=== PATIENT | male | born 1955 | race Caucasian/White ===

== ENCOUNTER → 2024-01-18 10:13 | Outpatient (REF) | payer MEDICARE, SELFPAY ==
[2024-01-18 11:44] LABS: % Immature Granulocytes 0.3 % (0-0.5); % Lymphocytes 18.4 % (20.5-51.1); % Monocytes 7.5 % (1.7-9.3); % Neutrophils 72.8 % (42.2-75.2); Absolute Lymphocytes 0.7 10^3/uL (1.2-3.4); Absolute Monocytes 0.3 10^3/uL (0.1-0.6); Absolute Neutrophils 2.8 10^3/uL (1.4-6.5); Hemoglobin 15.2 g/dL (13.0-18.0); Mean Corp Hgb Conc. 33.8 g/dL (33.0-37.0); Mean Corpuscular Hgb 31.1 pg (27.0-31.0); Mean Corpuscular Volume 92.2 fL (80.0-94.0); Mean Platelet Volume 10.6 fL (7.4-10.4); Nucleated Red Blood Cells % 0 % (-); Platelet Count 208 10^3/uL (130-400); Red Blood Cell Count 4.88 10^6/uL (4.70-6.10); White Blood Cell Count 3.9 10^3/uL (4.8-10.8)
[2024-01-18 12:13] LABS: Protein/creatinine Ratio 0.2; Urine Protein 9 mg/dl
[2024-01-18 12:17] LABS: ALT (SGPT) 43 U/L (0-50); AST (SGOT) 31 U/L (17-59); Albumin 4.6 g/dl (3.5-5.0); Alkaline Phosphatase 58 U/L (38-126); Blood Urea Nitrogen 25 mg/dl (9-20); Calcium 9.5 mg/dl (8.4-10.2); Carbon Dioxide 26 mmol/L (22-30); Chloride 102 mmol/L (98-107); Glucose 125 mg/dl (70-99); Potassium 4.9 mmol/L (3.5-5.1); Sodium 135 mmol/L (135-145); Total Bilirubin 0.8 mg/dl (0.2-1.3); Total Protein 7.4 g/dl (6.3-8.2); eGFR > 60.00
[2024-01-18 12:19] LABS: C-Reactive Protein < 5.00 mg/L (0.0-10.00)
[2024-01-19 21:46] LABS: ds-DNA Ab, IgG Reflex To Titer 82 IU (0-24)
[2024-01-20 13:55] LABS: Smith/RNP (ENA), IgG 4 Units (0-19)
[2024-01-20 14:38] LABS: Smith (ENA) Antibody, IgG 4 AU/mL (0-40)
== END ==
LOC: REG 10:13
PROVIDERS: ATTENDING PHYSICIAN Internal Medicine Rheumatology; FAMILY PHYSICIAN Internal Medicine
DX: M32.9 Systemic lupus erythematosus, unspecified (principal); Z51.81 Encounter for therapeutic drug level monitoring
CPT/HCPCS: 36415; 80053; 82570; 84156; 85025; 86140; 86225; 86235; 86256

== ENCOUNTER → 2024-07-25 10:13 | Outpatient (REF) | payer MEDICARE, SELFPAY ==
[2024-07-25 11:00] LABS: Urine Albumin Negative (Neg - Trace); Urine Bilirubin Negative (Negative); Urine Character Clear (Clear); Urine Color Yellow; Urine Glucose 3+ (Negative); Urine Ketone Negative (Negative); Urine Leukocyte Negative (Negative); Urine Nitrite Negative (Negative); Urine Occult Blood Negative (Negative); Urine Specific Gravity 1.015 (<1.030); Urine Urobilinogen Negative (Neg - 1+)
[2024-07-25 11:04] LABS: % Basophils 1.3 % (0-2); % Eosinophils 2.9 % (0-6); % Immature Granulocytes 0.6 % (0-0.5); % Lymphocytes 16.6 % (20.5-51.1); % Monocytes 10.7 % (1.7-9.3); % Neutrophils 67.9 % (42.2-75.2); Absolute Basophils 0.1 10^3/uL (0-0.2); Absolute Eosinophils 0.1 10^3/uL (0-0.7); Absolute Lymphocytes 0.8 10^3/uL (1.2-3.4); Absolute Monocytes 0.5 10^3/uL (0.1-0.6); Absolute Neutrophils 3.2 10^3/uL (1.4-6.5); Hematocrit 45.4 % (39.0-52.0); Hemoglobin 15.4 g/dL (13.0-18.0); Mean Corp Hgb Conc. 33.9 g/dL (33.0-37.0); Mean Corpuscular Hgb 31.3 pg (27.0-31.0); Mean Corpuscular Volume 92.3 fL (80.0-94.0); Mean Platelet Volume 9.9 fL (7.4-10.4); Nucleated Red Blood Cells % 0 % (-); Platelet Count 250 10^3/uL (130-400); Red Blood Cell Count 4.92 10^6/uL (4.70-6.10); Red Cell Dist. Width 12.1 % (11.5-14.5); White Blood Cell Count 4.8 10^3/uL (4.8-10.8)
[2024-07-25 11:37] LABS: Microalbumin, Random Urine < 0.6 mg/dl (0.6-1.7)
[2024-07-25 11:58] LABS: ALT (SGPT) 39 U/L (0-50); AST (SGOT) 31 U/L (17-59); Alkaline Phosphatase 55 U/L (38-126); Blood Urea Nitrogen 20 mg/dl (9-20); Calcium 9.6 mg/dl (8.4-10.2); Carbon Dioxide 25 mmol/L (22-30); Chloride 103 mmol/L (98-107); Glucose 158 mg/dl (70-99); HDL Cholesterol 50 mg/dl; LDL Cholesterol, Calculated 70 mg/dl; Potassium 5.1 mmol/L (3.5-5.1); Sodium 140 mmol/L (135-145); Total Bilirubin 0.7 mg/dl (0.2-1.3); Total Cholesterol 162 mg/dl (50-199); Total Protein 7.6 g/dl (6.3-8.2); Triglyceride 210 mg/dl (10-149); Very Low Density Lipoprotein 42 mg/dl (0-30); eGFR > 60.00
[2024-07-25 12:00] LABS: C-Reactive Protein < 5.00 mg/L (0.0-10.00)
[2024-07-25 12:03] LABS: Albumin 4.7 g/dl (3.5-5.0)
[2024-07-25 12:30] LABS: TSH 4.98 uIU/ml (0.47-4.68)
[2024-07-25 13:58] LABS: Glycohemoglobin (HgbA1c) 7.3 % (4.0-5.6)
== END ==
LOC: REG 10:13
PROVIDERS: ATTENDING PHYSICIAN Internal Medicine Rheumatology; FAMILY PHYSICIAN Internal Medicine; OTHER PHYSICIAN Dermatology Dermatopathology
DX: E11.40 Type 2 diabetes mellitus with diabetic neuropathy, unspecified (principal); E78.2 Mixed hyperlipidemia; I10 Essential (primary) hypertension; M15.9 Polyosteoarthritis, unspecified; Z51.81 Encounter for therapeutic drug level monitoring
CPT/HCPCS: 36415; 80053; 80061; 81003; 82043; 82570; 83036; 84443; 85025; 86140

== ENCOUNTER → 2024-07-28 14:00 | Outpatient (REF) | payer MEDICARE, SELFPAY | LOC: HWRAD 14:00 | PROVIDERS: ATTENDING PHYSICIAN Nurse Practitioner Family | DX: R22.1 Localized swelling, mass and lump, neck (principal) | CPT/HCPCS: 76536 ==

== ENCOUNTER → 2024-10-11 07:24 | Outpatient (REF) | payer MEDICARE, SELFPAY | LOC: MRI 07:24 | PROVIDERS: ATTENDING PHYSICIAN Internal Medicine | DX: R41.3 Other amnesia (principal) | CPT/HCPCS: 70553; A9575 ==

== ENCOUNTER → 2024-10-15 09:45 | Outpatient (REF) | payer MEDICARE, SELFPAY | LOC: RAD 09:45 | PROVIDERS: ATTENDING PHYSICIAN Internal Medicine | DX: R41.3 Other amnesia (principal); M25.512 Pain in left shoulder | CPT/HCPCS: 73030 ==

== ENCOUNTER → 2024-11-13 09:51 | Outpatient (REF) | payer MEDICARE, SELFPAY ==
[2024-11-13 10:56] LABS: Urine Albumin Negative (Neg - Trace); Urine Bilirubin Negative (Negative); Urine Character Clear (Clear); Urine Color Yellow; Urine Glucose 4+ (Negative); Urine Ketone Negative (Negative); Urine Leukocyte Negative (Negative); Urine Nitrite Negative (Negative); Urine Occult Blood Negative (Negative); Urine Urobilinogen Negative (Neg - 1+)
[2024-11-13 10:58] LABS: ALT (SGPT) 37 U/L (0-50); AST (SGOT) 26 U/L (17-59); Albumin 4.4 g/dl (3.5-5.0); Alkaline Phosphatase 62 U/L (38-126); Blood Urea Nitrogen 30 mg/dl (9-20); Calcium 9.4 mg/dl (8.4-10.2); Carbon Dioxide 24 mmol/L (22-30); Chloride 101 mmol/L (98-107); Glucose 145 mg/dl (70-99); HDL Cholesterol 45 mg/dl; LDL Cholesterol, Calculated 81 mg/dl; Potassium 5.1 mmol/L (3.5-5.1); Sodium 135 mmol/L (135-145); Total Bilirubin 0.7 mg/dl (0.2-1.3); Total Cholesterol 161 mg/dl (50-199); Total Protein 7.1 g/dl (6.3-8.2); Triglyceride 178 mg/dl (10-149); Very Low Density Lipoprotein 35 mg/dl (0-30); eGFR > 60.00
[2024-11-13 11:02] LABS: Erythrocyte Sed Rate 9 mm/hour (0-20)
[2024-11-13 11:09] LABS: C-Reactive Protein < 5.00 mg/L (0.0-10.00); Glycohemoglobin (HgbA1c) 6.7 % (4.0-5.6)
[2024-11-13 11:21] LABS: Free T4 0.98 ng/dl (0.78-2.19)
[2024-11-13 11:35] LABS: TSH 4.87 uIU/ml (0.47-4.68)
[2024-11-13 11:54] LABS: Vitamin B12 282 pg/ml (239-931)
[2024-11-13 12:21] LABS: Microalbumin, Random Urine <0.6 mg/dl (0.6-1.7)
[2024-11-13 13:10] LABS: Folate > 20.0 ng/ml (2.76-20)
== END ==
LOC: REG 09:51
PROVIDERS: ATTENDING PHYSICIAN Internal Medicine; OTHER PHYSICIAN Internal Medicine Rheumatology
DX: E11.40 Type 2 diabetes mellitus with diabetic neuropathy, unspecified (principal); R41.3 Other amnesia
CPT/HCPCS: 36415; 80053; 80061; 81003; 82043; 82570; 82607; 82746; 83036; 84439; 84443; 85652; 86140

== ENCOUNTER → 2025-06-11 09:35 | Outpatient (REF) | payer MEDICARE, SELFPAY ==
[2025-06-11 10:24] LABS: Hematocrit 41.6 % (39.0-52.0); Hemoglobin 14.2 g/dL (13.0-18.0); Mean Corp Hgb Conc. 34.1 g/dL (33.0-37.0); Mean Corpuscular Volume 92.2 fL (80.0-94.0); Nucleated Red Blood Cells % 0 % (-); Platelet Count 190 10^3/uL (130-400); Red Cell Dist. Width 12.3 % (11.5-14.5)
[2025-06-11 11:06] LABS: Microalb - Urine Creatinine 39.400 mg/dl
[2025-06-11 11:10] LABS: Microalbumin, Random Urine <0.6 mg/dl (0.6-1.7)
[2025-06-11 11:30] LABS: Glycohemoglobin (HgbA1c) 7.1 % (4.0-5.6)
[2025-06-11 11:40] LABS: ALT (SGPT) 45 U/L (0-50); AST (SGOT) 26 U/L (17-59); Albumin 4.3 g/dl (3.5-5.0); Alkaline Phosphatase 50 U/L (38-126); Blood Urea Nitrogen 21 mg/dl (9-20); Calcium 9.6 mg/dl (8.4-10.2); Carbon Dioxide 27 mmol/L (22-30); Chloride 105 mmol/L (98-107); Glucose 163 mg/dl (70-99); HDL Cholesterol 57 mg/dl; LDL Cholesterol, Calculated 59 mg/dl; Potassium 4.8 mmol/L (3.5-5.1); Sodium 138 mmol/L (135-145); Total Protein 7.1 g/dl (6.3-8.2); Very Low Density Lipoprotein 30 mg/dl (0-30); eGFR > 60.00
[2025-06-11 14:19] LABS: C-Reactive Protein < 5.00 mg/L (0.0-10.00)
[2025-06-14 15:38] LABS: Smith/RNP (ENA), IgG 4 Units (0-19)
[2025-06-14 15:41] LABS: SSA 52 (Ro)(ENA) Ab, IgG 136 AU/mL (0-40); SSA 60 (Ro)(ENA) Ab, IgG 115 AU/mL (0-40); SSB (La)(ENA) Ab, IgG 4 AU/mL (0-40)
[2025-06-14 23:04] LABS: ds-DNA Ab, IgG Reflex To Titer 67 IU (0-24)
== END ==
LOC: REG 09:35
PROVIDERS: ATTENDING PHYSICIAN Internal Medicine Rheumatology; FAMILY PHYSICIAN Internal Medicine
DX: E11.40 Type 2 diabetes mellitus with diabetic neuropathy, unspecified (principal); E78.2 Mixed hyperlipidemia; E11.8 Type 2 diabetes mellitus with unspecified complications; M32.9 Systemic lupus erythematosus, unspecified; Z51.81 Encounter for therapeutic drug level monitoring
CPT/HCPCS: 80053; 80061; 82043; 82570; 83036; 84156; 85025; 86140; 86225; 86235

== ENCOUNTER → 2025-07-03 10:12 | Outpatient (REF) | payer MEDICARE, SELFPAY | LOC: RAD 10:12 | PROVIDERS: ATTENDING PHYSICIAN Internal Medicine Rheumatology; FAMILY PHYSICIAN Internal Medicine | DX: M15.9 Polyosteoarthritis, unspecified (principal); M19.011 Primary osteoarthritis, right shoulder | CPT/HCPCS: 73030 ==